=== PATIENT | female | born 1935 | race Caucasian/White ===

== ENCOUNTER 2017-12-09 14:05 | Emergency (ER) | payer OTHER ==
[~2017-12-09] VITALS: Ht 149.9 cm; Wt 58.1 kg
--- NOTE | ~2017-12-09 | EKG ---
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
[~2017-12-09 14:05] MED LIST: ARTIFICIAL TEA1 EACH OP; ASPERCREME76.5 GM TP; BIOTIN1 MG PO; CARDIZEM CD240 MG PO; CENTRUM SILVER1 EAC4 PO; CLONAZEPAM 1 MG1 M1 PO; COMBIGAN EYE DR10 ML OP; COZAAR 50 MG TA50 M2 PO; FLAX SEED OIL1000 MG PO; MIRALAX17 GM PO; PRESERVISION T1 EACH PO; PRILOSEC 20 MG20 MG PO; TRAVATAN Z2.5 ML OPHTHALMIC; TYLENOL EXTRA500 MG PO; ZOLOFT50 MG PO
[2017-12-09 14:57] LABS: HEMATOCRIT 39.4 % (37.0-47.0); HEMOGLOBIN 13.5 gm/dL (12.0-15.0); MCH 31.8 pg (26.0-34.0); MCHC 34.4 g/dL (28.0-37.0); MCV 92.6 fL (80.0-100.0); RBC 4.25 mil/uL (4.20-5.00); RDW 13.5 % (10.5-14.5); WBC 7.6 thou/uL (4.0-11.0)
[2017-12-09 15:09] LABS: ANION GAP 11 mmol/L (7-16); BUN 23 mg/dL (7-18); CALCIUM 8.9 mg/dL (8.5-10.1); CHLORIDE 102 mmol/L (98-107); CO2 26 mmol/L (21-32); CREATININE 0.8 mg/dL (0.6-1.0); GLUCOSE 131 mg/dL (74-106); POTASSIUM 4.1 mmol/L (3.5-5.1); SODIUM 139 mmol/L (136-145)
[2017-12-09 15:17] LABS: ALBUMIN 3.8 g/dL (3.4-5.0); SGOT 20 U/L (15-37); SGPT 23 U/L (30-65); TOTAL BILIRUBIN 0.3 mg/dL (<0.1-1.0); TOTAL PROTEIN 7.2 g/dL (6.4-8.2); TROPONIN-I < 0.04 ng/mL (<0.06)
[2017-12-09 15:32] LABS: URINE BILIRUBIN NEGATIVE (Negative); URINE BLOOD NEGATIVE (Negative); URINE CLARITY CLEAR; URINE COLOR YELLOW; URINE GLUCOSE-RANDOM* NEGATIVE (Negative); URINE KETONES NEGATIVE (Negative); URINE LEUKOCYTES-REFLEX NEGATIVE (Negative); URINE NITRITE-REFLEX NEGATIVE (Negative); URINE PROTEIN (DIPSTICK) NEGATIVE (Negative); URINE SPECIFIC GRAVITY <= 1.005 (1.005-1.035); URINE UROBILINOGEN 0.2 E.U./dl (0.2-1.0)
[2018-06-06] MEDS ORDERED: COLACE100 MG PO (19:54)
[2018-06-06] MEDS ORDERED: PRESERVISION T1 EACH PO (19:55)
[2018-06-06] MEDS ORDERED: NORVASC5 MG PO (19:57)
[2018-06-06] MEDS ORDERED: LISINOPRIL20 MG PO (19:59)
[2018-06-06] MEDS ORDERED: ESCITALOPRAM OX10 MG PO (20:00)
[2018-06-06] MEDS ORDERED: K-DUR 20 MEQ T20 MEQ PO (20:02)
[2018-06-06] MEDS ORDERED: AKWA TEARS EYE15 ML OPHTHALMIC (20:03)
[2018-06-06] MEDS ORDERED: KEFLEX500 M1 PO (21:37)
[2018-06-21] MEDS ORDERED: BENADRYL25 MG PO (21:13)
[2018-06-21] MEDS ORDERED: PREDNISONE 20 M20 MG PO (21:13)
== END 2017-12-09 17:01 ==
LOC: ER 14:05
PROVIDERS: Emergency Medicine
DX: R53.1 Weakness (principal); M19.90 Unspecified osteoarthritis, unspecified site; E11.9 Type 2 diabetes mellitus without complications; I10 Essential (primary) hypertension; F32.9 Major depressive disorder, single episode, unspecified; K21.9 Gastro-esophageal reflux disease without esophagitis; H35.30 Unspecified macular degeneration; Z88.1 Allergy status to other antibiotic agents

== ENCOUNTER 2018-10-16 09:58 | Emergency (ER) | payer OTHER ==
[~2018-10-16] VITALS: Ht 142.2 cm; Wt 56.7 kg
[~2018-10-16 09:58] MED LIST changes: +AKWA TEARS EYE15 ML OPHTHALMIC; +BENADRYL25 MG PO; +COLACE100 MG PO; +ESCITALOPRAM OX10 MG PO; +K-DUR 20 MEQ T20 MEQ PO; +KEFLEX500 M1 PO; +LISINOPRIL20 MG PO; +NORVASC5 MG PO; +PREDNISONE 20 M20 MG PO
[2018-10-16 11:08] LABS: ABSOLUTE NEUTROPHILS 4.9 thou/uL (1.4-8.2); BASOPHILS 0.6 % (0.0-2.0); EOSINOPHILS 1.9 % (0.0-3.0); HEMATOCRIT 43.6 % (37.0-47.0); HEMOGLOBIN 14.7 gm/dL (12.0-15.0); LYMPHOCYTES 22.1 % (24.0-44.0); MCH 30.8 pg (26.0-34.0); MCHC 33.7 g/dL (28.0-37.0); MCV 91.3 fL (80.0-100.0); MONOCYTES 4.5 % (1.0-8.0); PLATELET COUNT 294 thou/uL (150-400); POLYS 70.9 % (36.0-66.0); RBC 4.78 mil/uL (4.20-5.00); RDW 14.2 % (10.5-14.5); WBC 6.9 thou/uL (4.0-11.0)
[2018-10-16 11:16] LABS: ANION GAP 10 mmol/L (7-16); BUN 19 mg/dL (7-18); CALCIUM 9.5 mg/dL (8.5-10.1); CHLORIDE 101 mmol/L (98-107); CO2 27 mmol/L (21-32); CREATININE 0.8 mg/dL (0.6-1.0); GLUCOSE 126 mg/dL (74-106); POTASSIUM 4.3 mmol/L (3.5-5.1); SODIUM 138 mmol/L (136-145)
[2018-10-16 11:24] LABS: ALBUMIN 4.4 g/dL (3.4-5.0); MAGNESIUM 2.1 mg/dL (1.8-2.4); SGOT 26 U/L (15-37); SGPT 29 U/L (30-65); TOTAL BILIRUBIN 0.4 mg/dL (<0.1-1.0); TOTAL PROTEIN 8.8 g/dL (6.4-8.2); TROPONIN-I <0.06 ng/mL (<0.06)
[2018-10-16 12:33] VITALS: BP 155/81
--- NOTE | 2018-10-17 09:58 | EKG ---
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: WHITNEY : 1935 Requested By: Tyree Garcia Order Number: [id number] MD: Willy Cabrera Measurements Intervals [place] Rate: 63 P: 22 [place]: 178 QRS: -20 QRSD: 89 T: 21 QT: 416 QTc: 426 Interpretive Statements Sinus rhythm Borderline left axis deviation Compared to ECG 06/06/2018 18:34:36 No significant changes Electronically Signed On 10-17-2018 9:58:07 DE ICER INSTALLER by Willy Cabrera [email or web address] <ELECTRONICALLY SIGNED> By: Willy Cabrera MD, [facility] 10/17/18 0958 D: 12/1120 112 Willy Cabrera MD, FACC /EPI
== END 2018-10-16 12:43 | disposition home or self-care (01) ==
LOC: ER 09:58
PROVIDERS: Emergency Medicine
DX: S51.811A Laceration without foreign body of right forearm, initial encounter (principal); S20.221A Contusion of right back wall of thorax, initial encounter; R55 Syncope and collapse; R42 Dizziness and giddiness; M19.90 Unspecified osteoarthritis, unspecified site; E11.9 Type 2 diabetes mellitus without complications; H35.30 Unspecified macular degeneration; I10 Essential (primary) hypertension; F32.9 Major depressive disorder, single episode, unspecified; K21.9 Gastro-esophageal reflux disease without esophagitis; Z87.891 Personal history of nicotine dependence; Z88.2 Allergy status to sulfonamides; W18.39XA Other fall on same level, initial encounter; Y92.89 Other specified places as the place of occurrence of the external cause; Y93.89 Activity, other specified; Y99.8 Other external cause status

== ENCOUNTER 2019-09-01 20:05 | Inpatient (IN) | payer OTHER ==
[~2019-09-01] VITALS: Ht 152.4 cm; Wt 68.9 kg
[2019-09-01 20:06] VITALS: BP 112/69
[2019-09-01 20:46] LABS: ABSOLUTE NEUTROPHILS 4.1 thou/uL (1.4-8.2); BASOPHILS 0.7 % (0.0-2.0); EOSINOPHILS 2.6 % (0.0-3.0); HEMATOCRIT 39.7 % (37.0-47.0); LYMPHOCYTES 36.5 % (24.0-44.0); MCH 30.7 pg (26.0-34.0); MCHC 32.7 g/dL (28.0-37.0); MONOCYTES 7.2 % (1.0-8.0); PLATELET COUNT 262 thou/uL (150-400); RBC 4.22 mil/uL (4.20-5.00); RDW 15.4 % (10.5-14.5); WBC 7.7 thou/uL (4.0-11.0)
[2019-09-01 20:49] LABS: CALCIUM 9.2 mg/dL (8.5-10.1); POTASSIUM 4.5 mmol/L (3.5-5.1)
[2019-09-01 20:55] LABS: ALBUMIN 3.7 g/dL (3.4-5.0); TOTAL BILIRUBIN 0.4 mg/dL (<0.1-1.0); TOTAL PROTEIN 7.5 g/dL (6.4-8.2)
[2019-09-01] MEDS ORDERED: TRAVATAN Z5 ML OPHTHALMIC (21:25)
[2019-09-01] MEDS ORDERED: BIOTIN1 MG PO (21:26)
[2019-09-01] MEDS ORDERED: MYLANTA MAXIMU355 ML PO (21:27)
[2019-09-01] MEDS ORDERED: CLONAZEPAM 0.50.5 M1 PO (21:28)
[2019-09-01] MEDS ORDERED: PRESERVISION T1 EACH PO (21:28)
[2019-09-01] MEDS ORDERED: NORVASC 2.5 MG2.5 M1 PO (21:29)
[2019-09-01] MEDS ORDERED: LISINOPRIL5 MG PO (21:29)
[2019-09-01] MEDS ORDERED: KLOR-CON M2020 MEQ PO (21:30)
[2019-09-01] MEDS ORDERED: NEURONTIN 300300 M1 PO (21:30)
[2019-09-01] MEDS ORDERED: MELOXICAM7.5 MG PO (21:32)
[2019-09-01] MEDS ORDERED: ESCITALOPRAM OX20 MG PO (21:32)
[2019-09-01] MEDS ORDERED: RANITIDINE HCL300 MG PO (21:32)
[2019-09-01] MEDS ORDERED: FLONASE 0.05%50 MCG NARES (21:33)
[2019-09-02] VITALS: BP 183/78
[2019-09-02 00:19] VITALS: BP 169/77
[2019-09-02 01:07] VITALS: BP 181/76
--- NOTE | 2019-09-02 06:00 | NUR ---
PT ADMITTED THROUGH THE ER WITH C/O DIARHEA AND NAUSEA AFTER EATING MEAT PRODUCTS AT [facility].PT WAS WITH DAUGHTER AND GRANDGAUGHTER.PT RECIEVED CIPRO AND FLAGYL AT THE ER.PT IS A/O X4.PT USED A WALKER,CANE OR ELECTRONIC W/C PRIOR TO ADM AT SNF.PT IS X2 ASSIST AND USES A BEDPAN.PT ALSO USES BRIEF AT SNF.PT HAD 3 WATERY STOOL ON SHIFT.PT PREFERS PAIN TO BE MANAGED WITH TYLENOL.JIM CAME IN AND ASSESSED PT.HOME MEDICATION STARTED.IV ACCESS ON RFA WITH NS AT 100CC/HR.AWAITING LAB RESULTS .
[2019-09-02 08:15] VITALS: BP 174/81
[2019-09-02 14:06] VITALS: BP 195/85
--- NOTE | 2019-09-02 16:22 | NUR ---
Assumed patient care at 0715. Patient had two loose stools in the early am during this shift (one dark brown, one yellowish in color, both moderate in amount). She has complained of some abdominal cramping. Dr Correa ordered Loperimide 2mg po q 4 hours for each loose stool. Beginning dose is usually 4mg po after the first loose stool but patient stated "I will only take one pill." She has ambulated with a walker and moderate assist to the restroom to have a shower and to urinate. She continues on clear liquids at this time. Vital signs are stable. Blood sugars prior to breakfast and lunch have not required Insulin. Patient continues on Contact Precations. She is negative for C-Diff. Patient is tolerating her IV Antibiotics without any complications. Will continue to monitor. POC followed.
[2019-09-02 20:15] VITALS: BP 174/75
--- NOTE | 2019-09-03 04:13 | NUR ---
Assessment completed. pt a&ox4. ambulates with 1assist and a walker to the bathroom. pt stated that she was worried about how many meds she was taking and that she's never taken so much meds in her life. BG was 158. pt was covered with scheduled insulin per dec and pt also drank 240cc of apple juice afterwards. pt has been resting for most of the night with little interruptions. v/s stable. no s/s of acute distress. contact prec discontinued call adan within reach. will cont to [facility]
[2019-09-03 07:40] VITALS: BP 153/77
[2019-09-03 09:17] LABS: HEMATOCRIT 32.2 % (37.0-47.0); MCHC 33.3 g/dL (28.0-37.0); MCV 93.2 fL (80.0-100.0); RBC 3.46 mil/uL (4.20-5.00); RDW 15.3 % (10.5-14.5); WBC 8.4 thou/uL (4.0-11.0)
[2019-09-03 09:21] LABS: HEMOGLOBIN 10.7 gm/dL (12.0-15.0)
[2019-09-03 09:23] LABS: CALCIUM 8.4 mg/dL (8.5-10.1); CREATININE 0.8 mg/dL (0.6-1.0); MAGNESIUM 1.6 mg/dL (1.8-2.4); POTASSIUM 3.5 mmol/L (3.5-5.1)
--- NOTE | 2019-09-03 12:09 | NUR ---
ORDERS RECEIVED FOR P.T.. CHART REVIEWED. SPOKE TO Pt WHO STATES THAT SHE DOES NOT NEED ANY P.T. WHILE SHE IS HERE SHE KNOWS WHEN SHE IS ABLE TO GET UP AND HOW MUCH D/T HER ARTHRITIS. 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 NSG AND Pt BOTH KNOW FOR Pt TO CONTACT NSG WHEN SHE WANTS TO GET UP TO KEEP UP/ MAINTAIN HER OVERALL, AVAILABLE MOBILITY. WILL D/C P.T. AT THIS TIME D/T Pt'S REFUSAL
[2019-09-03] MEDS ORDERED: LOPERAMIDE 2 MG2 M1 PO (14:23)
--- NOTE | 2019-09-03 14:28 | NUR ---
PT ADMITTED RELATED TO DIARHEA,VOMITING. CM REVIEWED CHART AND SPOKE WITH CARE TEAM. PT IS A&O X4. CM ROLE INTRODCUED. PT INDICATED SHE LIVES IN ASSISTED LIVING AT [facility]. PT INDICATED SHE HAS A CAN, 4WW, AND POWER SCOOTER FOR USE AT THE FACILITY. PT INDICATED SHE GETS ALL ASSISTANCE THAT SHE NEEDS AT [facility]. PT INDICATED HER DTR LIVES LOCALLY AND ASSISTED WITH TRANSPORT AND GROCERY SHOPPING. PT INDICATED SHE PLANS TO RETURN HOME TO [facility] AL ONCE MEDICALLY STABLE. PT AND CARE TEAM INDICATED THAT PT WILL LIKELY BE MEDICALLY STABLE TO DC HOME THIS DAY. PT INDICATED SHE WOULD REACH OUT TO HER DTR FOR TRANSPORT ONCE ORDERS ARE FINIALIZED. CM TO REQUEST CHART COPY. CM TO FOLLOW INDICATED WITH DC PLANNING.
[2019-09-03] MEDS ORDERED: PROBIOTIC1 EAC6 PO (14:39)
[2019-09-03 14:54] VITALS: BP 135/62
[2019-09-03 15:55] VITALS: BP 135/62
--- NOTE | 2019-09-03 16:00 | NUR ---
Assumed patient care at 0715. Patient's vital signs have been stable. She has had no nausea and/or vomiting. She has been tolerating solid foods well. Patient has been educated about the importance of taking her medications as ordered as she has been reluctant to take some of them. Discharge Instructions explained to patient. She verbalized an understanding of all instructions before signing paperwork.
== END 2019-09-03 17:17 | disposition home or self-care (01) | DRG 392 ==
LOC: ER 20:05 → EROBS 23:44 → 4W 23:44 → ENTRNSPT 09-03 16:33 → 4W 09-03 17:17
PROVIDERS: Emergency Medicine Emergency Medical Services; ADMIT Internal Medicine
DX: K52.9 Noninfective gastroenteritis and colitis, unspecified (principal); M19.90 Unspecified osteoarthritis, unspecified site; E11.9 Type 2 diabetes mellitus without complications; I10 Essential (primary) hypertension; F32.9 Major depressive disorder, single episode, unspecified; K21.9 Gastro-esophageal reflux disease without esophagitis; Z96.612 Presence of left artificial shoulder joint; Z96.611 Presence of right artificial shoulder joint; Z96.642 Presence of left artificial hip joint; Z96.653 Presence of artificial knee joint, bilateral; F41.9 Anxiety disorder, unspecified; Z60.2 Problems related to living alone; Z79.1 Long term (current) use of non-steroidal anti-inflammatories (NSAID); Z88.2 Allergy status to sulfonamides; Z87.891 Personal history of nicotine dependence; Z90.710 Acquired absence of both cervix and uterus; Z79.899 Other long term (current) drug therapy
CPT/HCPCS: 10040

== ENCOUNTER 2019-10-20 20:26 | Inpatient (IN) | payer OTHER ==
[~2019-10-20] VITALS: Ht 144.8 cm; Wt 59.2 kg
--- NOTE | ~2019-10-20 | HC ---
[facility] [place] [address] CONSULTATION Name: XIN MAJANO Room #: 361-P ADM IN M.R.#: [id number] Admission: 10/20/19 Attend Phys: Sergio Gibbons MD Discharge: Date of : 31 Report #: [id number] THIS REPORT FOR: //name// CC: Sergio Gibbons [employer] physician/PCP DATE OF SERVICE: 10/21/2019 REASON FOR CONSULTATION: The patient is an 84-year-old woman with nausea, vomiting, abdominal pain and diarrhea. HISTORY OF PRESENT ILLNESS: This 84-year-old woman lives at [facility]. She reports in particular in the past 2-3 months, she has had episodes of alternating bowel habits. She will at time have pellet-like stools. Other time, stools have been normal. In addition, periodically, less than monthly, she will have an episode about 30 minutes after eating where she has developed nausea and rectal urgency. She is going to the bathroom on the commode and she will have diarrhea and then nausea and vomiting as well. She will bring up food, which she had recently eaten. She does have crampy abdominal pain associated with this episode. She has not vomited any blood. She has not had any rectal bleeding. Episodes may last a few hours. The next day, she will feel weak and fatigued, but able to eat without difficulty. She reports an episode last evening after eating potato salad. She was brought to [facility] where she was evaluated. Laboratory studies revealed white count 8.3, hemoglobin 12.5, platelet count of 259,000. Her electrolytes were normal. BUN up slightly 19, creatinine 0.8, glucose 131. Her liver function studies were normal. Albumin was low at 1.9. Lipase was normal. B12 was normal. Her calcium was initially 5.9, this morning it is 8.1. Urinalysis did reveal many white cells. Review of available information in the computer database reveals that she has had several ER visits for bouts of nausea, vomiting and diarrhea. She also was to have a colonoscopy in June 2018. She was taking the Suprep and she developed a reaction, was seen in the Emergency Room. She reports AN ALLERGY TO SULFA and there are SULFA compounds in the Suprep. She was treated in the Emergency Room and had no further difficulties and was discharged. She reports previously she had a colonoscopy many years ago, but does not recall specifically 1. She reports it was done for screening purposes and she does not recall any abnormalities. PAST MEDICAL HISTORY: She does have type 2 diabetes mellitus. She has been treated for depression as well as high blood pressure. She had glaucoma and degenerative joint disease. She reports arthritis has been very disabling for her. She has had macular degeneration. She has been treated for reflux disease. She has peripheral neuropathy. [address] [address] CONSULTATION Name: XIN MAJANO Room #: 361-P [facility] IN .R.#: [id number] Admission: 10/20/19 Attend Phys: Sergio Gibbons MD Discharge: Date of : 33 Report #: [id number] PAST SURGICAL HISTORY: Tonsillectomy, left hip replacement, bilateral shoulder surgery, bilateral knee replacements, hysterectomy. MEDICATIONS: Usual medications list reviewed with the patient include acetaminophen, multivitamins, docusate, Travatan, Biotin, magnesium, antacid, PreserVision tablets, lisinopril, amlodipine, gabapentin, potassium, meloxicam 2 tablets daily, escitalopram 20 mg daily; ranitidine 300 mg daily, fluticasone nasal, clonazepam, ____ and Combigan eyedrops. FAMILY HISTORY: Noncontributory. SOCIAL HISTORY: Former cigarette smoker. Does not use alcohol. She is in a nursing facility due to her multiple health issues in particular arthritis and she has to ambulate with a walker or a motorized scooter. REVIEW OF SYSTEMS: GENERAL: She thinks she has lost a few pounds recently. She has not had any fever or chills. CENTRAL NERVOUS SYSTEM: She has had episodes of dizziness and multiple Emergency Room episodes for dizziness and syncope. 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 HEENT: No change in vision or hearing. No sores in the mouth. PULMONARY: Former smoker. No cough, pneumonia, or tuberculosis. CARDIOVASCULAR: No chest pain or chest palpitation. GASTROINTESTINAL: In addition to above, she does report some recent hoarseness and also intermittent solid food dysphagia. GENITOURINARY: Without known urinary tract infection, also she has pyuria at this time. MUSCULOSKELETAL: Diffuse arthritis, generalized weakness. SKIN: She has had multiple melanomas removed. ENDOCRINE: She does have diabetes. HEMATOLOGIC: Melanomas. No bruising or bleeding. PHYSICAL EXAMINATION: GENERAL: The patient is a well-developed, chronically ill-appearing woman, in no acute distress. VITAL SIGNS: Blood pressure 121/57, pulse 72. HEENT: Anicteric. Pupils equal and round. Oropharynx clear. NECK: Supple. CHEST: Clear. HEART: Regular rate and rhythm, normal S1, S2. ABDOMEN: Somewhat distended, soft, mild diffuse tenderness. No rebound or rigidity. RECTAL: Not done at this time. EXTREMITIES: Without cyanosis, clubbing or edema. [address] [address] CONSULTATION Name: XIN MAJANO Room #: 361-[facility] IN M.R.#: [id number] Admission: 10/20/19 Attend Phys: Sergio Gibbons MD Discharge: Date of : 33 Report #: [id number] NEUROLOGICAL: Normal to person, place, and time. Moves all 4 extremities well. LABORATORY DATA: As noted above. RADIOLOGIC: Three-view abdominal film revealed degenerative changes in her shoulders. Chest clear. There is a large hiatus hernia, nonspecific bowel gas pattern. In addition to above, the patient was admitted to [facility] with similar problems in August of last year. CT was done at that time, which revealed circumferential wall thickening within the descending and sigmoid colon suggestive of nonspecific colitis. She also had sigmoid diverticular disease as well as large hiatus hernia. She was treated symptomatically and her symptoms resolved and she was discharged. It was also noted in May of last year, she had a CTA of the abdomen and pelvis. There was mild thickening of the sigmoid colon, diverticular disease was seen. There was no evidence of mesenteric artery stenosis. There was atherosclerosis at the origin of the bilateral renal arteries. ASSESSMENT: 1. Recurrent nausea and vomiting and abdominal pain. 2. Recurrent bouts of diarrhea. 3. Change in bowel habits. 4. Large hiatus hernia. 5. Recent intermittent dysphagia for solids. 6. Diabetes with peripheral neuropathy. 7. Syncopal episodes, possibly autonomic dysreflexia. 8. Degenerative joint disease with use of meloxicam. 9. Colitis on recent CT, repeat CT pending. 10. Malnutrition, albumin 1.9. RECOMMENDATIONS: 1. Agree with CT scan, which is scheduled for later today. 2. She will at least need an upper endoscopy to evaluate with regards to use of meloxicam and possibly peptic mucosal disease as well as episodes of nausea and vomiting along with a large hiatus hernia, complaints of a raspy voice suggestive of reflux disease and intermittent solid food dysphagia. 3. Consider colonoscopy since previous CT has revealed evidence of colitis, wait CT which is scheduled for later today. By: [id number] [id number] Darren Grajeda MD /nt
[~2019-10-20 20:26] MED LIST changes: +CLONAZEPAM 0.50.5 M1 PO; +ESCITALOPRAM OX20 MG PO; +FLONASE 0.05%50 MCG NARES; +KLOR-CON M2020 MEQ PO; +LISINOPRIL5 MG PO; +LOPERAMIDE 2 MG2 M1 PO; +MELOXICAM7.5 MG PO; +MYLANTA MAXIMU355 ML PO; +NEURONTIN 300300 M1 PO; +NORVASC 2.5 MG2.5 M1 PO; +PROBIOTIC1 EAC6 PO; +RANITIDINE HCL300 MG PO; +TRAVATAN Z5 ML OPHTHALMIC
[2019-10-20 20:27] VITALS: BP 92/54
[2019-10-20 21:23] LABS: ABSOLUTE NEUTROPHILS 5.9 thou/uL (1.4-8.2); BASOPHILS 0.2 % (0.0-2.0); EOSINOPHILS 1.4 % (0.0-3.0); HEMATOCRIT 39.1 % (37.0-47.0); HEMOGLOBIN 12.5 gm/dL (12.0-15.0); LYMPHOCYTES 22.4 % (24.0-44.0); MCH 30.6 pg (26.0-34.0); MCHC 31.8 g/dL (28.0-37.0); MCV 96.2 fL (80.0-100.0); MONOCYTES 4.1 % (1.0-8.0); PLATELET COUNT 259 thou/uL (150-400); POLYS 71.9 % (36.0-66.0); RBC 4.07 mil/uL (4.20-5.00); RDW 14.8 % (10.5-14.5); WBC 8.3 thou/uL (4.0-11.0)
[2019-10-20 21:36] LABS: URINE BILIRUBIN NEGATIVE (Negative); URINE BLOOD NEGATIVE (Negative); URINE CLARITY CLEAR; URINE COLOR YELLOW; URINE GLUCOSE-RANDOM* NEGATIVE (Negative); URINE KETONES NEGATIVE (Negative); URINE LEUKOCYTES-REFLEX NEGATIVE (Negative); URINE NITRITE-REFLEX NEGATIVE (Negative); URINE PROTEIN (DIPSTICK) NEGATIVE (Negative); URINE SPECIFIC GRAVITY 1.015 (1.005-1.035); URINE UROBILINOGEN 0.2 E.U./dl (0.2-1.0)
[2019-10-20 21:43] LABS: ALBUMIN 1.9 g/dL (3.4-5.0); ANION GAP 12 mmol/L (7-16); BUN 17 mg/dL (7-18); CHLORIDE 114 mmol/L (98-107); CO2 16 mmol/L (21-32); CREATININE 0.6 mg/dL (0.6-1.0); GLUCOSE 114 mg/dL (74-106); LIPASE 128 U/L (73-393); POTASSIUM 3.1 mmol/L (3.5-5.1); SGOT 19 U/L (15-37); SGPT 12 U/L (30-65); SODIUM 142 mmol/L (136-145); TOTAL BILIRUBIN 0.3 mg/dL (<0.1-1.0); TOTAL PROTEIN 4.1 g/dL (6.4-8.2); TROPONIN-I <0.06 ng/mL (<0.06)
[2019-10-20 21:53] LABS: CALCIUM 5.9 mg/dL (8.5-10.1)
[2019-10-20 23:02] LABS: PHOSPHORUS 4.9 mg/dL (2.5-4.9)
[2019-10-20 23:19] LABS: CALCIUM 8.1 mg/dL (8.5-10.1)
[2019-10-20] MEDS ORDERED: MUCUS ER600 M1 PO (23:33)
[2019-10-20] MEDS ORDERED: COMBIGAN EYE DR10 ML EA. EYE (23:34)
[2019-10-20 23:37] VITALS: BP 146/65
[2019-10-21 00:03] VITALS: BP 176/74
--- NOTE | 2019-10-21 00:20 | NUR ---
FULL TIME STAFF INTERPRETER LEFT BEDSIDE AT THIS TIME AFTER ASSESSMENT. PATIENT BEING TRANSPORTED TO FLOOR AT THIS TIME
[2019-10-21 00:40] VITALS: BP 182/77
--- NOTE | 2019-10-21 03:36 | NUR ---
Patient arrived to around 0030. She was oriented to her room, admission assessment and documentation was completed, and consents were signed. Nursing advised patient to call if she needs to get up. Nursing will continue to monitor.
[2019-10-21 04:50] LABS: CALCIUM 8.7 mg/dL (8.5-10.1); CREATININE 0.8 mg/dL (0.6-1.0); MAGNESIUM 2.1 mg/dL (1.8-2.4)
[2019-10-21 04:58] LABS: POTASSIUM 4.9 mmol/L (3.5-5.1)
[2019-10-21 05:03] LABS: ABSOLUTE NEUTROPHILS 7.9 thou/uL (1.4-8.2); BASOPHILS 0.1 % (0.0-2.0); EOSINOPHILS 0.1 % (0.0-3.0); HEMATOCRIT 41.7 % (37.0-47.0); HEMOGLOBIN 13.2 gm/dL (12.0-15.0); MCH 30.3 pg (26.0-34.0); MCHC 31.6 g/dL (28.0-37.0); MCV 95.9 fL (80.0-100.0); MONOCYTES 5.6 % (1.0-8.0); PLATELET COUNT 275 thou/uL (150-400); POLYS 82.2 % (36.0-66.0); RBC 4.35 mil/uL (4.20-5.00); RDW 15.1 % (10.5-14.5); WBC 9.6 thou/uL (4.0-11.0)
[2019-10-21 05:15] VITALS: BP 108/67
[2019-10-21 07:17] LABS: CREATININE 0.9 mg/dL (0.6-1.0); PHOSPHORUS 4.3 mg/dL (2.5-4.9)
[2019-10-21 08:37] VITALS: BP 121/57
--- NOTE | 2019-10-21 11:45 | EKG ---
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: ALNOSO : 1935 Requested By: Tyree Garcia Order Number: [id number] MD: Willy Cabrera Measurements Intervals [place] Rate: 58 P: 42 UT: 178 QRS: -19 QRSD: 94 T: 15 QT: 466 QTc: 458 Interpretive Statements Sinus bradycardia Borderline left axis deviation Abnormal R-wave progression, late transition Compared to ECG 10/16/2018 11:21:28 No significant changes Electronically Signed On 10-21-2019 11:45:14 MOTOR COACH SUPERVISOR by Willy Cabrera [email or web address] <ELECTRONICALLY SIGNED> By: Willy Cabrera MD, [facility] 10/21/19 1143 01 01 Willy Cabrera MD, [facility] /EPI
[2019-10-21 15:21] VITALS: BP 144/57
[2019-10-21 19:29] VITALS: BP 176/99
--- NOTE | 2019-10-22 06:35 | NUR ---
PT FINISHED BOWEL PREP BEFORE 2100. BM'S NUMBERED 6X. ALL LIQUID IN NATURE. PT MULTIPLE TIMES INCONTINENT TO BOTH B/B, BUT WILL ASK FOR BED PAIN ON OCCASION. PT NPO SINCE 2400 FOR COLONOSCOPY TODAY. PT FEELS SHE WILL DC TODAY ALSO. NO OTHER COMPLAINTS EXPRESSED FROM PT. HOURLY ROUNDING AND CALL LIGHT WITHIN REACH.
[2019-10-22 07:48] VITALS: BP 182/82
[2019-10-22] MEDS ORDERED: METRONIDAZOLE500 M4 PO (12:26)
[2019-10-22] MEDS ORDERED: NORVASC5 MG PO (12:26)
[2019-10-22] MEDS ORDERED: PROTONIX 20 MG20 MG PO (12:26)
[2019-10-22] MEDS ORDERED: KEFLEX500 M1 PO (12:26)
[2019-10-22 14:47] VITALS: BP 153/70
[2019-10-22 16:14] VITALS: BP 146/115
--- NOTE | 2019-10-22 16:44 | NUR ---
INITIAL ASSESSMENT: SW reviewed chart and spoke with nursing and attending physician. Pt was admitted from [facility]-second floor. Pt to have colonoscopy tomorrow. Pt was unable to have colonoscopy today due to elevated blood pressure. SW met with pt at bedside. Introduced role of SW. Pt is alert/orientated x 4. Prior to admission, pt was using a cane and walker for ambulation. Pt states that her family is normally able to provide transportation back to [facility]. Pt is hoping to discharge tomorrow after colonoscopy. SW is following to assist as needed with discharge planning.
--- NOTE | 2019-10-22 16:56 | NUR ---
PATIENTS GI PROCEDURES COULD NOT BE COMPLETED BECAUSE HIGH BP. MEDS HAVE BEEN ADMINISTERED AND THEY ARE MILDLY EFFECTIVE BP REMAINS ELEVATED. CONT TO HAVE LOSE STOOLS FROM YESTERDAYS BOWEL PREP. WILL CONT TO MONITOR BP.
[2019-10-22 17:09] VITALS: BP 129/51
[2019-10-22 19:24] VITALS: BP 122/61
[2019-10-23 05:08] VITALS: BP 188/85
--- NOTE | 2019-10-23 05:55 | NUR ---
PT IS AGAIN SCHEDULED FOR COLONOSCOPY TODAY. PRESSURES HAVE BEEN INLINE. ALSO PT HAS BEEN ON THE DYNOMAP OVERNIGHT TO SHOW HISTORY OF REGULAR BP. I SUGGESTED IT COULD HAVE BEEN "WHITE LAB COAT SYNDROME" WITH THE INCREASE ONE TIME YESTERDAY. PT HAS BEEN NPO SINCE 0. PT USE WALKER AND ELECTRIC SCOOTER AT FACILITY. PT NOW HAS 5N CONSULT PENDING. NO OTHER COMPLAINTS FROM PT.
[2019-10-23 07:34] VITALS: BP 159/85
--- NOTE | 2019-10-23 13:48 | NUR ---
ORDER RECEIVED FOR OT EVAL AND TREAT. PATIENT WAS OUT FOR PROCEDURES LAST 2 DAYS AND WHEN INTERVIEWED THIS AFTERNOON PATIENT STATED THAT SHE DID NOT NEED OCCUPATIONAL THERAPY AND THAT SHE WAS ABLE TO DO HER OWN SELFCARES AND WAS PLANNING TO GO HOME TO [facility] WHERE SHE WOULD HAVE HELP NEEDED. PATIENT DECLINED OCCUPATIONAL THERAPY AND WILL BE DISCHARGED FROM OT PER HER WISHES.
[2019-10-23 14:12] VITALS: BP 159/85
--- NOTE | 2019-10-23 15:23 | NUR ---
DISCHARGE NOTE: SW reviewed chart and spoke with nursing and attending physician. Pt had colonoscopy earlier today and is medically stable for discharge back to [facility] today. SW met with pt and son at bedside to discuss discharge plan. Pt's son to provide transportation back to [facility]. Discharge ppwk sent with pt. No additional SW needs identified at this time, but is available to assist should needs arise.
--- NOTE | 2019-10-24 12:05 | NUR ---
NURIA received call from Allison at [facility] requesting discharge orders/summary. Pt did not bring the correct ppwk back with her yesterday. Per Allison, she called the nurses station last evening to request the correct ppwk and the documentation was never sent. NURIA faxed discharge orders/summary and faxed to [facility]. NURIA spoke with Allison to notify of fax. Confirmed info was received. NURIA is available should additional needs arise.
--- NOTE | 2019-10-24 16:07 | PATH ---
[facility] [address] [place] [address] PATHOLOGY RPT PROCEDURE Name: CEE MAJANO Room #: 361-P DIS IN M.R.#: [id number] Admission: 10/20/19 Date of : 31 Discharge: 10/23/19 Report #: [id number] Path Case #: [id number] [facility] Accession Number: [id number] . 01 Material submitted: . PART A: small bowel - SMALL BOWEL BX PART B: esophagus - RANDOM BX OF ESOPHAGEAL PART C: colon - RANDOM BX OF COLON (RIGHT). Modifiers: right PART D: colon - RANDOM BX OF COLON (LEFT). Modifiers: left . 01 Clinical history: . Dysphagia, diarrhea, abnormal CT scan C and D: Rule out microscopic colitis . 02 Diagnosis: A. Small bowel mucosa, small bowel, endoscopic biopsy: - Mild nonspecific focal chronic duodenitis. - Negative for villous blunting or increase in intraepithelial lymphocytes. . B. Squamous mucosa, random esophageal, endoscopic biopsy: - Mild esophagitis showing features of reflux esophagitis. - Negative for metaplasia or dysplasia. . C. Large intestinal mucosa, random right colon, endoscopic biopsy: - No significant diagnostic abnormalities present. - Negative for microscopic colitis. - Negative for dysplasia or malignancy. . D. Large intestinal mucosa, random left colon, endoscopic biopsy: - Regenerative crypts along with fibrotic lamina propria, favor ischemic colitis. - Negative for dysplasia or malignancy. . (IUV:veneer sander; 10/24/2019) R 10/24/2019 1259 Local . 02 Comment: D. Examination shows regenerative surface epithelium where intact, denuded in other areas along with regenerative changes within the crypts. The lamina propria shows fibrosis. Lamina propria vessels with fibrin thrombi are not identified. There is an increase in acute inflammatory infiltrate within the entire biopsy tissue. Crypt abscesses are not identified. Architectural abnormalities are not present as well. Overall findings are suggestive of ischemic colitis. The differential diagnosis includes pseudomembranous colitis (explosive ulcers are not present within the biopsy tissue). Please correlate clinically. [address] [address] PATHOLOGY RPT PROCEDURE Name: MELECIOCEE Room #: 361-P DIS IN M.R.#: [id number] Admission: 10/20/19 Date of : 31 Discharge: 10/23/19 Report #: [id number] Path Case #: [id number] (IUV:veneer sander; 10/24/2019) . 02 Electronically signed: . Dea Mora MD, Pathologist NPI- [id number] . 01 Gross description: . A. The specimen is received in formalin, labeled "Haylan, Cee, small bowel BX" and consists of 4 fragments of pink-baltazar tissue measuring between 0.2 x 0.2 cm and 0.8 x 0.3 cm which are entirely submitted in A1. . B. The specimen is received in formalin, labeled "Haylan, Cee, random BX of esophageal" and consists of multiple translucent fragments of pink-christianson tissue measuring 1.4 x 0.7 x 0.2 cm in aggregate which are entirely submitted in B1. . C. The specimen is received in formalin, labeled "Haylan, Cee, random BX of right colon" and consists of multiple fragments of pink-baltazar tissue measuring 1.1 x 0.7 x 0.2 cm in aggregate which are entirely submitted in C1. . D. The specimen is received in formalin, labeled "Haylan, Cee, random BX of left colon" and consists of 3 fragments of pink-baltazar tissue measuring between 0.2 x 0.2 cm and 0.4 x 0.3 cm which are entirely submitted in D1. (SDY; 10/23/2019) SYU/SYU 10/24/2019 1252 Local . 02 Pathologist provided ICD-10: K29.80, K20.9, K63.9 . 02 CPT . 940787, 600633, 637447, 196074 Specimen Comment: A courtesy copy of this report has been sent to [phone] Specimen Comment: [id number] Specimen Comment: Report sent to / DR FOOTE Performed at: 01 [facility] [address] [place] [address] [address], [place], [place] [id number] MD Al Simpson MD Phone: [phone] Performed at: [address] [facility] [id number] MD Dea Mora MD Phone: [phone]
== END 2019-10-23 15:22 | DRG 391 ==
LOC: ER 20:26 → 3W 22:48 → EROBS 22:48 → 3W 10-21 00:06 → ENTRNSPT 10-23 15:09 → EDTRNSPTSTS 10-23 15:11 → 3W 10-23 15:22
PROVIDERS: Emergency Medicine; Nurse Practitioner; ADMIT Hospitalist
PROC: 0DBF8ZX Excision of Right Large Intestine, Via Natural or Artificial Opening Endoscopic, Diagnostic (ICD-10-PCS; principal; 2019-10-23)
PROC: 0D758ZZ Dilation of Esophagus, Via Natural or Artificial Opening Endoscopic (ICD-10-PCS; principal; 2019-10-23)
PROC: 0DBN8ZX Excision of Sigmoid Colon, Via Natural or Artificial Opening Endoscopic, Diagnostic (ICD-10-PCS; principal; 2019-10-23)
PROC: 0DB58ZX Excision of Esophagus, Via Natural or Artificial Opening Endoscopic, Diagnostic (ICD-10-PCS; principal; 2019-10-23)
DX: K52.9 Noninfective gastroenteritis and colitis, unspecified (principal); E43 Unspecified severe protein-calorie malnutrition; K57.30 Diverticulosis of large intestine without perforation or abscess without bleeding; M19.90 Unspecified osteoarthritis, unspecified site; I10 Essential (primary) hypertension; F32.9 Major depressive disorder, single episode, unspecified; K21.9 Gastro-esophageal reflux disease without esophagitis; Z96.653 Presence of artificial knee joint, bilateral; Z96.612 Presence of left artificial shoulder joint; Z96.611 Presence of right artificial shoulder joint; E86.0 Dehydration; E87.6 Hypokalemia; I95.9 Hypotension, unspecified; E83.51 Hypocalcemia; E11.42 Type 2 diabetes mellitus with diabetic polyneuropathy; K44.9 Diaphragmatic hernia without obstruction or gangrene; G25.81 Restless legs syndrome; F41.9 Anxiety disorder, unspecified; Z66 Do not resuscitate; R13.10 Dysphagia, unspecified; Z79.1 Long term (current) use of non-steroidal anti-inflammatories (NSAID); Z90.710 Acquired absence of both cervix and uterus; Z88.2 Allergy status to sulfonamides; Z87.891 Personal history of nicotine dependence; Z68.28 Body mass index [BMI] 28.0-28.9, adult
CPT/HCPCS: 10879; 62110; 62900; 70005